=== PATIENT | male | born 1985 | race Two or more races ===

== ENCOUNTER 2017-09-22 19:54 | Observation (INO) | payer BC ==
[2017-09-22 20:25] VITALS: BMI 31.6
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
[2017-09-22 21:00] LABS: HEMATOCRIT 48.5 % (35.4-49); HEMOGLOBIN 15.9 GM/dL (11.7-16.9); MCH 27.2 pg (25.7-33.7); MCHC 32.9 g/dl (32.0-35.9); MEAN CELL VOLUME 82.8 fl (80-96); MEAN PLT VOLUME 9.2 fl (7.5-11.1); RBC 5.85 M/mm3 (4.00-5.60); RDW 13.2 % (11.9-15.9); WHITE BLOOD COUNT 15.7 K/mm3 (4.0-10.0)
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
[2017-09-22 21:13] LABS: INR 1.03 (0.82-1.09); PROTHROMBIN TIME (PATIENT) 11.6 SEC (9.7-13.0)
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
[2017-09-22] MEDS ORDERED: methylPREDNISolone NA SUCC 125 MG/2 ML VIAL IVPUSH ONE (21:28)
[2017-09-22 21:36] LABS: ALBUMIN 4.8 g/dl (3.4-5.0); ANION GAP 10 (8-16); BLOOD UREA NITROGEN 23 mg/dL (7-18); CALCIUM 9.5 mg/dL (8.5-10.1); CHLORIDE 104 mmol/L (98-107); CO2 23 mmol/L (21-32); GLUCOSE,RANDOM 100 mg/dL (74-106); SODIUM 137 mmol/L (136-145)
[2017-09-22 21:39] LABS: ALK PHOS 123 U/L (45-117); BILIRUBIN,TOTAL 0.4 mg/dL (0.2-1.0); CREATININE 1.1 mg/dL (0.7-1.3); SGPT/ALT 55 U/L (12-78); TOT PROT 9.1 g/dl (6.4-8.2)
[2017-09-22 21:40] LABS: POTASSIUM 4.6 mmol/L (3.5-5.1); SGOT/AST 36 U/L (15-37)
[2017-09-22] MEDS ORDERED: methylPREDNISolone NA SUCC 125 MG/2 ML VIAL ONE (21:43)
[2017-09-22 22:16] LABS: URINE APPEARANCE CLEAR; URINE BILIRUBIN NEGATIVE (<2.0 mg/dL); URINE COLOR LTYELLOW; URINE GLUCOSE (UA) NEGATIVE (NEGATIVE); URINE KETONE NEGATIVE (NEGATIVE); URINE LEUK ESTERASE NEGATIVE (NEGATIVE); URINE NITRITE NEGATIVE (NEGATIVE); URINE PROTEIN NEGATIVE (NEGATIVE); URINE UROBILINOGEN NEGATIVE mg/dL (0.2-1.0)
[2017-09-22 22:33] LABS: EPI CELLS RARE /HPF (FEW); URINE MUCUS RARE
[2017-09-23 00:23] LABS: PLATELET ESTIMATE ADEQUATE
[2017-09-23 00:31] LABS: PLATELET COUNT 252 K/MM3 (134-434)
[2017-09-23] MEDS ORDERED: oxyCODONE HCL 5 MG TABLET PO PRN (02:15)
[2017-09-23] MEDS ORDERED: ACETAMINOPHEN 325 MG TABLET (FP) PO PRN (02:15)
[2017-09-23 07:44] LABS: HEMATOCRIT 44.4 % (35.4-49); HEMOGLOBIN 14.9 GM/dL (11.7-16.9); MCH 27.7 pg (25.7-33.7); MCHC 33.5 g/dl (32.0-35.9); MEAN CELL VOLUME 82.7 fl (80-96); MEAN PLT VOLUME 8.8 fl (7.5-11.1); PLATELET COUNT 217 K/MM3 (134-434); RBC 5.37 M/mm3 (4.00-5.60); RDW 13.9 % (11.9-15.9); WHITE BLOOD COUNT 10.7 K/mm3 (4.0-10.0)
[2017-09-23 08:04] LABS: CHLORIDE 106 mmol/L (98-107); POTASSIUM 4.4 mmol/L (3.5-5.1); SODIUM 137 mmol/L (136-145)
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
[2017-09-23 08:24] LABS: ALBUMIN 4.3 g/dl (3.4-5.0); ALK PHOS 104 U/L (45-117); ANION GAP 10 (8-16); BILIRUBIN,TOTAL 0.3 mg/dL (0.2-1.0); BLOOD UREA NITROGEN 23 mg/dL (7-18); CALCIUM 9.2 mg/dL (8.5-10.1); CO2 21 mmol/L (21-32); CREATININE 1.1 mg/dL (0.7-1.3); GLUCOSE,RANDOM 143 mg/dL (74-106); SGOT/AST 16 U/L (15-37); SGPT/ALT 46 U/L (12-78); TOT PROT 8.1 g/dl (6.4-8.2)
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
--- NOTE | 2017-09-23 09:40 | EKG ---
Test Reason : Blood Pressure : / mmHG Vent. Rate : 085 BPM Atrial Rate : 085 BPM P-R Int : 124 ms QRS Dur : 100 ms QT Int : 346 ms P-R-T Axes : 049 030 014 degrees QTc Int : 411 ms NORMAL SINUS RHYTHM NORMAL ECG WHEN COMPARED WITH ECG OF 21-MAR-2014 19:26, NO SIGNIFICANT CHANGE WAS FOUND Confirmed by WINSTON KRISHNA MD ([id number]) on 09/23/2017 9:40:05 AM Referred By: Confirmed By:WINSTON KRISHNA MD
--- NOTE | 2017-09-23 09:52 | PN ---
Progress Note, Physician Chief Complaint: Pt resting comfortably Pain and numbness leg improved No new sypltoms,or progression of current symptom Neurology consult appreciated Awaiting MRI Neurology rec neurantin - Current Medication List Current Medications: Active Medications Acetaminophen (Tylenol -) 325 mg PO Q6H PRN PRN Reason: PAIN LEVEL 5-10 Oxycodone HCl (Roxicodone -) 5 mg PO Q6H PRN PRN Reason: PAIN LEVEL 5-10 - Objective Vital Signs: Vital Signs Temperature 98.6 F 09/23/17 06:16 Pulse Rate 107 H 09/23/17 06:16 Respiratory Rate 18 09/23/17 07:06 Blood Pressure 123/73 09/23/17 06:16 O2 Sat by Pulse Oximetry (%) 99 09/23/17 07:06 Constitutional: Yes: No Distress Eyes: Yes: Conjunctiva Clear HENT: Yes: Atraumatic Neck: Yes: Supple Cardiovascular: Yes: Regular Rate and Rhythm Respiratory: Yes: Regular, CTA Bilaterally Gastrointestinal: Yes: Normal Bowel Sounds, Soft Musculoskeletal: Yes: WNL Extremities: Yes: WNL Edema: Yes Peripheral Pulses WNL: Yes Neurological: Yes: WNL, Alert, Oriented (No motor or sensory deficit,) ...Motor Strength: WNL Psychiatric: Yes: WNL, Alert Labs: CBC, BMP 09/23/17 06:10 09/23/17 06:10 INR, PTT INR 1.03 (0.82-1.09) 09/22/17 20:44 - ....Imaging Cat Scan: Report Reviewed MRI: Pending Assessment/Plan LOW back pain with rt lower extremity numbness Disc herniation Hypercholestrolemia PLAN MRI of back pending Continue pain meds Neurantin 300mg po bid D/c planing after MRI
[2017-09-23] MEDS ORDERED: PT OWN MED DRAWER 7, Y5N ONE (10:35)
[2017-09-23] MEDS ORDERED: ONDANSETRON 4 MG/2 ML VIAL IVPUSH PRN (14:46)
[2017-09-23] MEDS ORDERED: LOPERAMIDE HCL 2 MG CAPSULE PO PRN (14:46)
[2017-09-23 15:31] VITALS: BP 146/91; PULSE 97; TEMP 98.4
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
== END 2017-09-23 19:42 | disposition home or self-care (01) ==
LOC: JER 19:54 → JERBED 23:15 → UNDOADMOB 23:57 → J8W 09-23 01:30
PROVIDERS: ADMIT Family Medicine; ATTEND Family Medicine
PROC: 3E033GC Introduction of Other Therapeutic Substance into Peripheral Vein, Percutaneous Approach (ICD-10-PCS; principal; 2017-09-22)
DX: M54.5 Low back pain (principal); M51.26 Other intervertebral disc displacement, lumbar region; R20.0 Anesthesia of skin; E78.5 Hyperlipidemia, unspecified
CPT/HCPCS: 36415; 72131-TC; 72148-TC; 80053; 81003; 81015; 85025; 85027; 85610; 93005; 93010; 99285-25; G0378